=== PATIENT | male | born 1950 | race Caucasian/White ===

== ENCOUNTER 2023-05-06 12:16 | Outpatient (OUT) | payer MEDICARE, SELFPAY ==
--- NOTE | 2023-05-06 12:44 | ECG_ITS ---
[facility] Test Date: 2023-05-06 Pat Name: SABINE HENNING Department: Room: - Gender: Male Funds Development Director: : [id number] Requested By: SIMRAN GONZALES Order Number: [id number] Reading MD: DEXTER MARTINEZ Measurements Intervals [place] Rate: 54 P: 40 IA: 172 QRS: 45 QRSD: 90 T: 27 QT: 435 QTc: 415 Interpretive Statements SINUS BRADYCARDIA POSSIBLE LEFT ATRIAL ENLARGEMENT [-0.1mV P WAVE IN V1/V2] No previous ECG available for comparison Electronically Signed On 05-07-2023 7:08:43 EDT by DEXTER MARTINEZ
[2023-05-06 13:30] LABS: Basophils Absolute Auto 0.1 10^3/uL (0.0-0.1); Basophils Percent Auto 0.9 % (0.2-2.0); Eosinophils Absolute Auto 0.2 10^3/uL (0.0-0.7); Hematocrit 42.8 % (42.0-54.0); Immature Granulocytes Abs Auto 0.02 10^3/uL (0.00-0.03); Immature Granulocytes Pct Auto 0.3 % (0.0-0.5); Lymphocytes Absolute Auto 1.5 10^3/uL (1.2-3.8); Lymphocytes Percent Auto 22.9 % (20.5-60.0); Mean Corpuscular HGB Conc 32.7 g/dL (29.9-35.2); Mean Corpuscular Volume 94.7 fL (80.0-94.0); Mean Platelet Volume 10.3 fL (9.5-13.5); Monocytes Absolute Auto 0.5 10^3/uL (0.3-0.8); Monocytes Percent Auto 8.2 % (1.7-12.0); Neutrophils Absolute Auto 4.2 10^3/uL (1.4-6.5); Neutrophils Percent Auto 64.7 % (43.0-75.0); Platelet Count 255 10^3/uL (150-450); Red Blood Count 4.52 10^6/uL (4.70-6.10); Red Cell Distribution Width 12.6 % (11.0-15.0); White Blood Count 6.6 10^3/uL (4.0-11.0)
[2023-05-06 13:43] LABS: INR 0.97; Partial Thromboplastin Time 29.7 sec (22.3-36.2); Prothrombin Time 10.3 sec (9.0-11.6)
[2023-05-06 13:45] LABS: Alanine Aminotransferase 31 U/L (16-63); Albumin Globulin Ratio 0.8; Albumin Level 3.2 g/dL (3.4-5.0); Alkaline Phosphatase 102 U/L (46-116); Aspartate Amino Transferase 21 U/L (15-37); Bilirubin Direct 0.1 mg/dL (0.0-0.2); Bilirubin Total 0.5 mg/dL (0.2-1.0); Globulin 4.1 g/dL; Total Protein 7.3 g/dL (6.4-8.2)
== END 2023-05-06 12:17 | disposition home or self-care (01) ==
LOC: PST 12:22
PROVIDERS: Visit Provider Urology
DX: Z01.810 Encounter for preprocedural cardiovascular examination (principal); Z01.812 Encounter for preprocedural laboratory examination; N20.1 Calculus of ureter; I10 Essential (primary) hypertension; K76.9 Liver disease, unspecified
CPT/HCPCS: 36415; 80076; 85025; 85610; 85730; 93005

== ENCOUNTER 2023-05-07 10:57 | Day surgery (SDC) | payer MEDICARE, SELFPAY ==
[2023-05-06 12:58] VITALS: BP 160/99; PULSE 66; RESP 20; TEMP 36.7; O2SAT 99; BMI 23.8
[2023-05-07 07:19] LABS: Anion Gap 12.4; BUN Creatinine Ratio 15.3; Calcium 9.4 mg/dL (8.5-10.1); Carbon Dioxide 29.7 mmol/L (21.0-32.0); Chloride 99 mmol/L (98-107); Estimated GFR (African America >60 (>=60); Estimated GFR (Non-African Ame 51 (>=60); Glucose 85 mg/dL (74-106); Potassium 4.1 mmol/L (3.5-5.1); Sodium 137 mmol/L (136-145)
[2023-05-07 11:21] VITALS: BP 154/100; PULSE 75; RESP 16; TEMP 36.1; O2SAT 98
[2023-05-07] MEDS: LACTATED RINGER'S SOLUTION 1,000 ML 50 ML IV ×2 (11:35→14:48)
[2023-05-07] MEDS: CEFAZOLIN SODIUM/DEXTROSE,ISO 1 GM/50 ML IV.SOLN IV (13:39)
--- NOTE | 2023-05-07 14:51 | PM.URSON ---
Urology Surgery Operative Note Operative Note Procedure Date: 05/07/23 Time Out Performed: yes Pre-op Diagnosis: obstructing left ureteral calculus Post-op Diagnosis: same as pre-op Procedures performed: #1. Cystoscopy. #2. Left rigid ureteral dilation. #3. Left ureteroscopy. #4. Left pyeloscopy. #5. Holmium laser lithotripsy of left ureteral calculus. #6. Stone basket extraction of fragments. #7. Placement of 6 [place] variable length left ureteral stent Anesthesia: General-LMA Primary Surgeon: Luis Dan Complications: non- Estimated blood loss (mL): 10 Findings: #1. Left ureteral stricture at L3. #2. Very dense hard ureteral stone Specimens: ureteral stone fragments. Indications for Procedures: this gentleman has a 7 mm left mid to proximal ureteral calculus which she is unable to pass. Since he is going back to [place] within a few days he was desirouss for stone manipulation and possible stent placement prior to his trip. He now presents for cystoscopy, ureteroscopy, laser lithotripsy and possible left stent placement. He has signed an informed consent after all the risks were explained in great detail. Detailed description of Procedure: The patient was brought to the operating room and placed on the operating room table in the supine position. SCDs were placed on the lower extremities and turned on and functioning during the entire case. Timeout was done by all parties in the room. We all agreed upon the patient's identification and the planned procedures for this patient. Genn. anesthesia was then administered. The patient was then repositioned into the modified dorsal lithotomy position. All pressure points were satisfactorily padded. Genitalia were sterilely prepped and draped in usual fashion.I started by passing a 22 [place] Olympus cystoscope per urethra and into the bladder. Urethra was normal. Prostate showed bilobar hypertrophy. Panendoscopy in the bladder showed no tumors or stones. While using fluoroscopy I could clearly see the stone at the L3 level. I then passed a Glidewire through the scope and cannulated the left ureter and got the wire beyond the stone into the kidney. In doing so the stone popped up into the kidney. I then used a 8 and 10 [place] rigid dilator to dilate the distal ureter. The scope was removed. I then passed a navigator 06/29 ureteral access sheath over the wire and further dilated the ureter. The styllette was passed up to the L34 area. The stylette and wire were removed. I then passed a flexible ureteroscope through the access sheath and then into the ureter. I saw at the L3 level where the stone was there was a stricture. With some negotiation I was able to get the scope through the narrowed area and scope proximally. I had to do pyeloscopy because the stone was pushed up into the kidney. I was able to get to this stone in the mid pole calyx. I then passed a 272 ? holmium laser fiber through the scope and made contact with the stone. At 8 W continuously I then began to dust the stone. This stone seemed very hard. I was able to fragment it into 5 pieces. there was mild amount of bleeding and visibility began to get compromised.I then used the 0 tip nitinol basket and engaged one to 2 pieces at a time and extracted them out. These were all sent for stone analysis. On the last trip up into the kidney I could not appreciate any more true stone fragments. Fluoroscopically we could not see any fragments remaining. The scope was then removed. I then passed a Glidewire through the access sheath into the kidney and removed the sheath. I then backloaded the cystoscope over the wire and passed it into the bladder. I then slid a 6 [place] variable length ureteral stent over the wire up into the kidney and remove the wire. There were good curls in the kidney and in the bladder. The bladder was drained of its contents and the scope was then removed. He was then transferred to a [facility] and wheeled to PACU in stable condition. He'll be discharged to home later today with a prescription for Vesicare 10 mg daily #20 and Keflex 500 mg twice a day for one week. He will get his stent removed in [place] by another urologist.
[2023-05-07 14:56] VITALS: BP 143/83; PULSE 71; RESP 30; TEMP 36.2; O2SAT 99
[2023-05-07 15:26] VITALS: BP 154/92; PULSE 57; RESP 10; O2SAT 98
[2023-05-07 15:56] VITALS: BP 155/92; PULSE 61; RESP 18; O2SAT 97
[2023-05-14 19:14] LABS: Calcium Oxalate Monohydrate 100 % (.); Size 3x3 mm (.)
== END 2023-05-07 15:56 | disposition home or self-care (01) ==
PROVIDERS: Visit Provider Urology
PROC: (CPT 52356; principal; 2023-05-07 12:00)
DX: N13.2 Hydronephrosis with renal and ureteral calculous obstruction (principal); I10 Essential (primary) hypertension; E78.00 Pure hypercholesterolemia, unspecified; Z87.442 Personal history of urinary calculi; K75.81 Nonalcoholic steatohepatitis (NASH); R35.1 Nocturia; Z79.899 Other long term (current) drug therapy; N13.1 Hydronephrosis with ureteral stricture, not elsewhere classified
CPT/HCPCS: 52356; 36415; 76000; 80048; 82365; 99999; C1874; J2704